=== PATIENT | female | born 2000 | race Caucasian/White ===

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

== ENCOUNTER → 2018-01-23 | Outpatient (CLI) | payer OTHER ==
--- NOTE | 2018-01-23 10:27 | DIAGNOSTIC IMAGING REPORT ---
ABDOMEN COMPLETE (US) CLINICAL HISTORY: Abdominal pain, diarrhea and nausea. COMPARISON STUDY: No previous studies for comparison. FINDINGS: Liver is sonographically normal. The gallbladder is normal. There are no gallstones. The pancreas is within normal limits. There is no biliary ductal dilatation. The common bile duct measures 2 mm in caliber. The size of the spleen is normal. The right kidney measures 12 cm in length and the left measures 13.2 cm. There is no hydronephrosis. No calculi or masses are identified. The caliber of the abdominal aorta is normal and visualized portions of the IVC are patent. There is no ascites. IMPRESSION: Normal abdominal ultrasound. Electronically signed by: Florin Arboleda M.D. 01/23/2018 10:25 AM Dictated Date/Time: 01/23/2018 10:16 AM
== END | disposition home or self-care (01) ==
LOC: C.ULTR 09:33
PROVIDERS: ATTEND Internal Medicine Gastroenterology
DX: R10.13 Epigastric pain (principal); K59.1 Functional diarrhea; R11.0 Nausea; R14.0 Abdominal distension (gaseous)